=== PATIENT | male | born 1950 ===

== ENCOUNTER 2017-09-01 12:56 | Emergency (ER) | payer OTHER ==
[2017-09-01 13:57] VITALS: BP 122/79; PULSE 58; RESP 20; TEMP 97.8; O2SAT 98
--- NOTE | 2017-09-01 14:35 | C.PDOC ---
History Of Present Illness 66 y/o male presents to the ER complaining of buzzing sound in the ears which has been present for 50 years. Patient denies having any ear pain, fever, headache, and dizziness. Of note, patient states that has not been evaluated by an ENT for 50 years. Time Seen by Provider: 09/01/17 14:09 Chief Complaint (Nursing): ENT Problem History Per: Patient History/Exam Limitations: None Onset/Duration Of Symptoms: Days Current Symptoms Are (Timing): Still Present Severity: Moderate Past Medical History Reviewed: Historical Data, Nursing Documentation, Vital Signs Vital Signs: Last Vital Signs Temp 97.8 F 09/01/17 13:54 Pulse 58 L 09/01/17 13:54 Resp 20 09/01/17 13:54 BP 122/79 09/01/17 13:54 Pulse Ox 98 09/01/17 21:17 - Medical History PMH: HTN Surgical History: No Surg Hx Family History: States: No Known Family Hx - Social History Hx Tobacco Use: Yes Hx Alcohol Use: No Hx Substance Use: No - Immunization History Hx Tetanus Toxoid Vaccination: No Hx Influenza Vaccination: No Hx Pneumococcal Vaccination: No Review Of Systems Constitutional: Negative for: Fever ENT: Positive for: Other (ear ringing). Negative for: Ear Pain Neurological: Negative for: Headache, Dizziness Physical Exam - Physical Exam Appears: Non-toxic, No Acute Distress, Other (comfortable) Skin: Normal Color, Warm, No Rash (on face) Head: Atraumatic, Normacephalic Eye(s): bilateral: Normal Inspection, PERRL Ear(s): Bilateral: Normal, Other (normal TM, no cerumen) Nose: Normal Oral Mucosa: Moist Neck: Supple Chest: Symmetrical Cardiovascular: Rhythm Regular Respiratory: Normal Breath Sounds, No Accessory Muscle Use, No Rales, No Rhonchi , No Wheezing Extremity: Normal ROM Neurological/Psych: Oriented x3, Normal Speech, Normal Cognition, Normal Motor, Normal Sensation ED Course And Treatment O2 Sat by Pulse Oximetry: 98 (RA) Pulse Ox Interpretation: Normal Progress Note: Patient has been told to follow up with ENT within 1 week. Disposition Counseled Patient/Family Regarding: Diagnosis, Need For Followup - Disposition Referrals: Shawn Peralta MD [Staff Provider] - Disposition: HOME/ ROUTINE Disposition Time: 14:30 Condition: STABLE Additional Instructions: FOLLOW UP WITH EAR NOSE THROAT SPECIALIST WITHIN 1 WEEK RETURN TO EMERGENCY ROOM IF SYMPTOMS WORSEN SEGUIMIENTO CON ESPECIALISTA DE [place] DE OJOS DE ODO DENTRO DE 1 SEMANA REGRESE AL [facility] DE [facility] SI LOS SNTOMAS EMPEORAN Forms: [employer] (Italian) Print Language: JAPANESE - POA Present On Arrival: None - Clinical Impression Clinical Impression: Ringing in the ears - Scribe Statement The provider has reviewed the documentation as recorded by the Scribe Jacinto Shah Provider Attestation: All medical record entries made by the Scribe were at my direction and personally dictated by me. I have reviewed the chart and agree that the record accurately reflects my personal performance of the history, physical exam, medical decision making, and the department course for this patient. I have also personally directed, reviewed, and agree with the discharge instructions and disposition.
== END 2017-09-01 14:48 | disposition home or self-care (01) ==
LOC: C.ER 12:56
DX: H93.19 Tinnitus, unspecified ear (principal)